=== PATIENT | male | born 1970 | race Two or more races ===

== ENCOUNTER 2019-02-24 05:14 | Inpatient (IN) | payer MEDICAID ==
[~2019-02-24] VITALS: Ht 170.2 cm; Wt 95.7 kg
--- NOTE | 2019-02-24 05:25 | NUR ---
LACTATION SPECIALIST NOTES RECEIVED PT VIA GURNEY/AMBULANCE FROM [facility]. PT A/O X 4 AND ABLE TO MAKE NEEDS KNOWN. RESPIRATIONS EVEN AND UNLABORED WITH NO S/S OF ACUTE DISTRESS OF SOB NOTED. NO COMPLAINTS OF PAIN AT THIS TIME. PT WITH #18G IN LAC PATENT AND INTACT SL. SKIN INTACT. SAFETY MEASURES IN PLACE WITH BED IN LOWEST LOCKED POSITION WITH SIDE RAILS UP X2. CALL LIGHT WITHIN REACH. PT ON TELE MONITOR AT SINUS RHYTHM 76. ORIENTED PT TO UNIT AND ROOM. WILL CONTINUE TO MONITOR.
[2019-02-24 05:50] VITALS: BP 168/98
[2019-02-24] MEDS ORDERED: ZOLPIDEM TARTRATE 5 MG TABLET PO PRN (07:00)
[2019-02-24] MEDS ORDERED: MAG HYDROX/AL HYDROX/SIMETH 30 ML UDC PO PRN (07:00)
[2019-02-24] MEDS ORDERED: Z GUARD REMEDY 2 OZ OINT TP PRN (07:00)
[2019-02-24] MEDS ORDERED: ACETAMINOPHEN 325 MG TABLET PO PRN (07:00)
[2019-02-24] MEDS ORDERED: HYDROCODONE/APAP 5/325MG 1 EACH TABLET PO PRN (07:00)
[2019-02-24] MEDS ORDERED: NITROGLYCERIN 0.4 MG/TAB BOTTLE SL PRN (07:00)
[2019-02-24] MEDS ORDERED: MORPHINE SULFATE INJ 2 MG/ML DISP.SYRIN IV PRN (07:00)
[2019-02-24] MEDS ORDERED: MAGNESIUM HYDROXIDE 30 ML UDC PO PRN (07:00)
[2019-02-24] MEDS ORDERED: ONDANSETRON HCL/PF 4 MG/2 ML VIAL IVP PRN (07:00)
--- NOTE | 2019-02-24 07:47 | NUR ---
STRAP BUCKLER MACHINE OPENING NOTES RECEIVED PATIENT ON BED, A/O X 4 AND ABLE TO MAKE NEEDS KNOWN, RESPONSIVE TO ALL STIMULI. RESPIRATION EVEN AND NON LABORED WITH NO ACUTE RESPIRATORY DISTRESS, LUNGS CLEARED BILATERALLY. ABDOMEN SOFT AND NON DISTENDED WITH ACTIVE BOWEL SOUNDS. SKIN WARM TO TOUCH, INTACT AND DRY. PAIN AT LEFT FINGERS 3/10 AND ABLE TO TOLERATE WELL, REFUSED PAIN MEDICATION. IV SITE AT RAC GAUGE 18 AND PATENT IN FLUSHING. ALL CONCERNS ADDRESSED. PLACED CALL LIGHT WITHIN REACH FOR SAFETY. WILL CONTINUE TO EVALUATE CARE.
--- NOTE | 2019-02-24 07:53 | NUR ---
COLON THERAPIST NOTES SINUS RHYTHM 92 ON TELE MONITOR.
--- NOTE | 2019-02-24 07:56 | NUR ---
PENAL OFFICER NOTES PT IN BED AWAKE AND ABLE TO MAKE NEEDS KNOWN. PT A/O X4. RESPIRATION EVEN AND UNLABORED WITH NO S/S OF ACUTE DISTRESS OR SOB NOTED THROUGHOUT SHIFT. PT ON MEDIA SENIOR RECRUITER AT SR 81. SAFETY MEASURES IN PLACE WITH BED IN LOWEST LOCKED POSITION WITH SIDE RAILS UP X2. PT DENIES PAIN AT THIS TIME. IV SITE AT RAC GAUGE 18 AND PATENT AND INTACT. CALL LIGHT WITHIN REACH. WILL ENDORSE TO ONCOMING NURSE FOR JOSUE.
[2019-02-24 08:00] VITALS: BP 163/93
[2019-02-24 08:20] LABS: BASOPHILS # (AUTO) 0.1 /CMM (0.0-0.2); BASOPHILS % (AUTO) 0.6 % (0.0-2.0); HEMATOCRIT 45 % (39-51); HEMOGLOBIN 15.6 g/dL (13.5-17.5); LYMPHOCYTES # (AUTO) 1.8 /CMM (0.8-4.8); LYMPHOCYTES % (AUTO) 21.4 % (20.0-44.0); MEAN CORPUSCULAR HGB CONC 34 g/dl (31.0-36.0); MEAN CORPUSCULAR VOLUME 90 fL (80-96); MONOCYTES # (AUTO) 0.8 /CMM (0.1-1.30); MONOCYTES % (AUTO) 8.9 % (2.0-12.0); NEUTROPHILS # (AUTO) 5.9 /CMM (1.8-8.9); NEUTROPHILS % (AUTO) 68.1 % (43.0-81.0); PLATELET COUNT (AUTO) 236 /CMM (150-450); RED BLOOD CELL COUNT(AUTO) 5.04 MIL/uL (4.5-6.0); WHITE BLOOD COUNT (AUTO) 8.6 K/uL (4.3-11.0)
[2019-02-24] MEDS ORDERED: ATORVASTATIN 10 MG TABLET PO SCH (09:00)
[2019-02-24] MEDS ORDERED: ASPIRIN EC 81 MG TABLET.DR PO SCH (09:00)
[2019-02-24] MEDS: METOPROLOL TARTRATE 50 MG TABLET PO SCH ×2 (11:43→17:00)
[2019-02-24 13:05] LABS: CALCIUM, SERUM 8.8 mg/dL (8.5-10.1); CREATININE 1.1 mg/dL (0.6-1.3); POTASSIUM 3.8 mmol/L (3.5-5.1)
[2019-02-24 13:09] LABS: ALBUMIN 3.6 g/dL (3.4-5.0); BILIRUBIN,TOTAL 0.9 mg/dL (0.2-1.0); MAGNESIUM 2.2 mg/dL (1.8-2.4); PHOSPHORUS 3.4 mg/dL (2.5-4.9); TOTAL PROTEIN, SERUM 7.4 g/dL (6.4-8.2)
--- NOTE | 2019-02-24 14:00 | NUR ---
[employer] ADMINSTRATOR NOTES PATIENT LEFT FOR [facility] VIA GURNEY. CONSENT AND CHECKLIST IN THE CHART SIGNED BY PATIENT AND WITNESS.
[2019-02-24] MEDS ORDERED: METOPROLOL TARTRATE INJ 5 MG/5 ML AMPUL ONE ×2 (14:01→14:27)
[2019-02-24] MEDS ORDERED: IV NS 0.9% 250 ML IV ONE (14:01)
[2019-02-24] MEDS ORDERED: IOHEXOL-350 100 ML VIAL IV ONE (14:01)
[2019-02-24] MEDS ORDERED: CT SWABBABLE VALVE TRANS SET 1 EA INFUS.SET MC ONE (14:01)
[2019-02-24] MEDS ORDERED: METOPROLOL TARTRATE INJ 5 MG/5 ML AMPUL IVP ONE (14:30)
[2019-02-24] MEDS ORDERED: IV NS 0.9% 500 ML IV PRN (14:30)
[2019-02-24] MEDS ORDERED: NITROGLYCERIN 0.4 MG/TAB BOTTLE SL ONE (14:30)
[2019-02-24 16:00] VITALS: BP 129/83
--- NOTE | 2019-02-24 19:06 | NUR ---
M/S RN CLOSING NOTES PATIENT A/O X 4 AND ABLE TO MAKE NEEDS KNOWN. RESPIRATION EVEN AND NON LABORED WITH NO ACUTE RESPIRATORY DISTRESS. ABDOMEN SOFT AND NON DISTENDED WITH ACTIVE BOWEL SOUNDS, CONTINENT BOWEL AND BLADDER WITH BRP. SKIN WARM TO TOUCH, INTACT AND DRY. DENIES PAIN AND DISCOMFORT. INFORMED ABOUT [facility]CA RESULT WITH VERBAL UNDERSTANDING. IV SITE AT RAC GAUGE 18 AND PATENT IN FLUSHING. ALL CONCERNS ADDRESSED. PLACED CALL LIGHT WITHIN REACH FOR SAFETY. ENDORSED PATIENT TO NEXT SHIFT.
--- NOTE | 2019-02-24 19:50 | NUR ---
RN NOTES RECEIVED PATIENT AWAKE, ALERT AND ORIENTED X4, DENIES ANY CHEST PAIN AND DISCOMFORT, SAFETY MEASURES IN PLACE, CALL LIGHT WITHIN EASY REACH, RECEIVED DISCHARGE ORDER FROM TANIKA MAYEN DNP, INFORMED PATIENT REGARDING ORDER FOR HOME TONIGHT. PATIENT STATES THAT WILL PICK HIM UP BY 10 PM, NOTED, WILL MONITOR ACCORDINGLY.
[2019-02-24 20:00] VITALS: BP 133/81
--- NOTE | 2019-02-24 20:30 | NUR ---
RN NOTES PATIENT REFUSED LAB DRAW HE WILL BE DISCHARGE TONIGHT.
--- NOTE | 2019-02-24 22:15 | NUR ---
RN NOTES PATIENT LEFT THE UNIT ACCOMPANIED BY AND SON, PATIENT IS AMBULATORY, NO SIGNS OF ACUTE RESPIRATORY AND CARDIAC DISTRESS NOTED, DENIES ANY PAIN AND DISCOMFORT. DISCHARGE PACKET SIGNED. ALL NEEDS ATTENDED.
== END 2019-02-24 22:20 | disposition home or self-care (01) | DRG 203 ==
LOC: MED 05:14 → TELE 06:59 → MED 08:25
PROVIDERS: ADMIT Hospitalist; ATTEND Hospitalist
DX: M94.0 Chondrocostal junction syndrome [Tietze] (principal); E66.9 Obesity, unspecified; E78.5 Hyperlipidemia, unspecified; I10 Essential (primary) hypertension; Z68.33 Body mass index [BMI] 33.0-33.9, adult; G47.33 Obstructive sleep apnea (adult) (pediatric); M54.12 Radiculopathy, cervical region; R19.7 Diarrhea, unspecified; Z91.19 Patient's noncompliance with other medical treatment and regimen
CPT/HCPCS: 36415; 75574; 80053-TC; 83735-TC; 84100-TC; 84484-TC; 85025-TC; 87081-TC; 93307-TC; G0378; J3490; J7050; Q9967